=== PATIENT | female | born 1945 | race Caucasian/White ===

== ENCOUNTER → 2023-10-22 09:20 | Outpatient (REF) | payer MEDICARE, SELFPAY ==
[2023-10-22 10:25] LABS: % Basophils 0.5 % (0-2); % Eosinophils 4.2 % (0-6); % Immature Granulocytes 0.1 % (0-0.5); % Lymphocytes 17.2 % (20.5-51.1); % Monocytes 11.2 % (1.7-9.3); % Neutrophils 66.8 % (42.2-75.2); Absolute Eosinophils 0.4 10^3/uL (0-0.7); Absolute Lymphocytes 1.4 10^3/uL (1.2-3.4); Absolute Monocytes 0.9 10^3/uL (0.1-0.6); Absolute Neutrophils 5.5 10^3/uL (1.4-6.5); Hematocrit 33.4 % (37.0-47.0); Hemoglobin 10.4 g/dL (12.0-16.0); Mean Corp Hgb Conc. 31.1 g/dL (33.0-37.0); Mean Corpuscular Hgb 27.3 pg (27.0-31.0); Mean Corpuscular Volume 87.7 fL (81.0-99.0); Mean Platelet Volume 10.3 fL (7.4-10.4); Nucleated Red Blood Cells % 0 %; Platelet Count 287 10^3/uL (130-400); Red Blood Cell Count 3.81 10^6/uL (4.20-5.40); White Blood Cell Count 8.3 10^3/uL (4.8-10.8)
[2023-10-22 10:37] LABS: ALT (SGPT) 13 U/L (0-35); AST (SGOT) 19 U/L (14-36); Alkaline Phosphatase 175 U/L (38-126); Blood Urea Nitrogen 16 mg/dl (7-17); Calcium 9.9 mg/dl (8.4-10.2); Carbon Dioxide 31 mmol/L (22-30); Chloride 102 mmol/L (98-107); Glucose 117 mg/dl (70-99); Potassium 4.1 mmol/L (3.5-5.1); Sodium 141 mmol/L (135-145); Total Bilirubin 0.6 mg/dl (0.2-1.3); Total Protein 6.6 g/dl (6.3-8.2); eGFR > 60.00
[2023-10-22 11:02] LABS: Erythrocyte Sed Rate 65 mm/hour (0-20)
== END ==
LOC: OLABWPC 09:20
PROVIDERS: ATTENDING PHYSICIAN Internal Medicine
DX: E78.00 Pure hypercholesterolemia, unspecified (principal); E03.9 Hypothyroidism, unspecified; R60.0 Localized edema; E78.5 Hyperlipidemia, unspecified
CPT/HCPCS: 36415; 80053; 85025; 85652

== ENCOUNTER → 2023-11-01 12:25 | Outpatient (REF) | payer MEDICARE, SELFPAY | LOC: WOUND 12:25 | PROVIDERS: ATTENDING PHYSICIAN Surgery; FAMILY PHYSICIAN Internal Medicine | DX: I87.2 Venous insufficiency (chronic) (peripheral) (principal); R60.1 Generalized edema; I10 Essential (primary) hypertension; I25.10 Atherosclerotic heart disease of native coronary artery without angina pectoris | CPT/HCPCS: 99202 ==

== ENCOUNTER → 2024-01-22 10:07 | Outpatient (REF) | payer MEDICARE, SELFPAY ==
[2024-01-22 10:36] LABS: % Basophils 0.6 % (0-2); % Eosinophils 4.3 % (0-6); % Immature Granulocytes 0.4 % (0-0.5); % Lymphocytes 20.9 % (20.5-51.1); % Monocytes 6.8 % (1.7-9.3); Absolute Basophils 0.1 10^3/uL (0-0.2); Absolute Eosinophils 0.3 10^3/uL (0-0.7); Absolute Lymphocytes 1.7 10^3/uL (1.2-3.4); Absolute Monocytes 0.5 10^3/uL (0.1-0.6); Absolute Neutrophils 5.4 10^3/uL (1.4-6.5); Hematocrit 33.5 % (37.0-47.0); Hemoglobin 10.1 g/dL (12.0-16.0); Mean Corp Hgb Conc. 30.1 g/dL (33.0-37.0); Mean Corpuscular Hgb 26.9 pg (27.0-31.0); Mean Corpuscular Volume 89.1 fL (81.0-99.0); Mean Platelet Volume 9.9 fL (7.4-10.4); Nucleated Red Blood Cells % 0 %; Platelet Count 304 10^3/uL (130-400); Red Blood Cell Count 3.76 10^6/uL (4.20-5.40); Red Cell Dist. Width 15.5 % (11.5-14.5)
[2024-01-22 10:52] LABS: Erythrocyte Sed Rate 62 mm/hour (0-20)
[2024-01-22 11:11] LABS: ALT (SGPT) 13 U/L (0-35); AST (SGOT) 24 U/L (14-36); Albumin 3.2 g/dl (3.5-5.0); Alkaline Phosphatase 198 U/L (38-126); Blood Urea Nitrogen 13 mg/dl (7-17); Calcium 10.1 mg/dl (8.4-10.2); Carbon Dioxide 29 mmol/L (22-30); Chloride 103 mmol/L (98-107); Glucose 98 mg/dl (70-99); HDL Cholesterol 57 mg/dl; LDL Cholesterol, Calculated 22 mg/dl; Potassium 4.1 mmol/L (3.5-5.1); Sodium 137 mmol/L (135-145); Total Bilirubin 0.4 mg/dl (0.2-1.3); Total Cholesterol 95 mg/dl (50-199); Total Protein 6.9 g/dl (6.3-8.2); Triglyceride 82 mg/dl (10-149); Very Low Density Lipoprotein 16 mg/dl (0-30); eGFR > 60.00
[2024-01-25 09:30] LABS: Free T4 1.48 ng/dl (0.78-2.19)
== END ==
LOC: OLABWPC 10:07
PROVIDERS: ATTENDING PHYSICIAN Internal Medicine
DX: E78.00 Pure hypercholesterolemia, unspecified (principal); E03.9 Hypothyroidism, unspecified; R60.0 Localized edema; E78.5 Hyperlipidemia, unspecified
CPT/HCPCS: 36415; 80053; 80061; 84443; 85025; 85652

== ENCOUNTER → 2024-03-10 09:41 | Outpatient (REF) | payer MEDICARE, SELFPAY ==
[2024-03-10 11:46] LABS: Free T4 1.74 ng/dl (0.78-2.19)
[2024-03-10 12:00] LABS: TSH 4.79 uIU/ml (0.47-4.68)
== END ==
LOC: OLABWPC 09:41
PROVIDERS: ATTENDING PHYSICIAN Registered Nurse
DX: E03.9 Hypothyroidism, unspecified (principal)
CPT/HCPCS: 36415; 84439; 84443

== ENCOUNTER 2024-03-28 03:25 | Emergency (ER) | payer MEDICARE, SELFPAY ==
[2024-03-28 03:31] VITALS: BP 154/76; BMI 34.5
[2024-03-28 03:38] VITALS: BP 154/76
--- NOTE | 2024-03-28 04:48 | ED.GENMED ---
History of Present Illness
<ANN Noel - Last Filed: 03/28/24 06:01>
General
Chief Complaint: Fall
Source: patient
Exam Limitations: none
Time Seen by Provider: 03/28/24 04:44
Nursing documentation reviewed up to this point in time: agreed with
History of Present Illness
History of Present Illness:
78 year old female presents for evaluation of a fall. Pt is a resident at [facility], and states that at approximately 03:00 on 03/28 she fell off the toilet; endorses 'dosing off' prior to her fall. Pt notes she fell onto her left knee,
denies LOC and denies hitting her head. She was able to ambulate with EMS assistance following the fall. She typically uses a walker to ambulate day-to-day. Currently pt endorses mild left knee pain only with extension, as well as mild swelling. XR
negative for fracture. Pt notes that this is her third fall in the last 10 years. She denies numbness/tingling, dizziness, N/V, syncope, GOMEZ, and changes in vision.
Past History
<ANN Noel - Last Filed: 03/28/24 06:01>
Past History
ED Past Medical History: CAD, GERD, HTN, Hypercholesterolemia, Hypothyroidism and Other (chronic LE cellulitis)
ED Past Surgical History: Gynecological and Orthopedic
Social History
Tobacco: Non-smoker
Alcohol: None
Drug: None
Living: assisted living
Family History
Family History: Unable to obtain
Review of Systems
<ANN Noel - Last Filed: 03/28/24 06:01>
Review of Systems
Allergies reviewed?: Yes
Constitutional: Reports no symptoms
EENT: Reports no symptoms
Respiratory: Reports no symptoms
Cardiac: Reports no symptoms
ABD/GI: Reports no symptoms
: Reports no symptoms
Musculoskeletal: Reports joint pain (left knee) and joint swelling (left knee)
Skin: Reports no symptoms
Neurological: Reports no symptoms
Endocrine: Reports no symptoms
Hematologic/Lymphatic: Reports no symptoms
Psychiatric: Reports no symptoms
Phy Exam
<ANN Noel - Last Filed: 03/28/24 06:01>
General Physical Exam
General Presentation: well appearing
General age: appears stated age
General Skin: warm
General Habitus: elderly
General Mental: alert
General Hydration: appears well hydrated
Cardiovascular Exam
Cardiovascular Exam: regular rate/rhythm
Pulmonary Exam
Pulmonary Exam: lungs clear and no respiratory distress
Neurological Exam
Neurological Exam: alert, oriented x3, no motor deficits and no sensory deficits
Musculoskeletal Exam
Musculoskeletal Exam: joint swelling (mild swelling over left superior patella ) and other (mild pain elicited with left knee extension )
Skin Exam
Skin Exam: erythema (right and left lower legs)
Course
<ANN Noel - Last Filed: 03/28/24 06:01>
Orders/Labs/Results
Orders:
Orders
03/28/24 03:40
CT Head W/o Iv Contrast Urgent
Comment:
Reason For Exam: Fall
03/28/24 03:43
Electrocardiogram (*1) Urgent
Reason for Study: Syncope
CR Knee - Left 4 Or More View* Urgent
Comment:
Reason For Exam: fall
03/28/24 03:44
EKG- Treatment ONCE
Vital Signs
Initial and Last Documented VS:
Initial Vital Signs
Temp Pulse Resp BP Pulse Ox
97.7 F 58 16 154/76 97
03/28/24 03:31 03/28/24 03:31 03/28/24 03:31 03/28/24 03:31 03/28/24 03:31
Last Documented Vital Signs
Temp Pulse Resp BP Pulse Ox
97.7 F 58 16 154/76 98
03/28/24 03:31 03/28/24 03:31 03/28/24 03:31 03/28/24 03:38 03/28/24 04:00
<Arcadio Gonzales DO - Last Filed: 03/28/24 06:07>
Orders/Labs/Results
Orders:
Orders
03/28/24 03:40
CT Head W/o Iv Contrast Urgent
Comment:
Reason For Exam: Fall
03/28/24 03:43
Electrocardiogram (*1) Urgent
Reason for Study: Syncope
CR Knee - Left 4 Or More View* Urgent
Comment:
Reason For Exam: fall
03/28/24 03:44
EKG- Treatment ONCE
Vital Signs
Initial and Last Documented VS:
Initial Vital Signs
Temp Pulse Resp BP Pulse Ox
97.7 F 58 16 154/76 97
03/28/24 03:31 03/28/24 03:31 03/28/24 03:31 03/28/24 03:31 03/28/24 03:31
Last Documented Vital Signs
Temp Pulse Resp BP Pulse Ox
97.7 F 58 16 154/76 98
03/28/24 03:31 03/28/24 03:31 03/28/24 03:31 03/28/24 03:38 03/28/24 04:00
<ANN Noel - Last Filed: 03/28/24 06:01>
MDM/Problems Addressed
Differential Diagnosis Includes:
left knee contusion, left knee fracture
<DO Marisol Parker Last Filed: 03/28/24 06:07>
*Critical Care Note
Total Time (30-74mins, 75-104mins- exclusive of procedures): Not Applicable
ED Attending Note
<ANN Noel - Last Filed: 03/28/24 06:01>
-
Portions of this chart may have been created with voice recognition software.� Occasional wrong word or��sound alike� substitutions may have occurred due to the inherent limitations of voice recognition software.
<Arcadio Gonzales DO - Last Filed: 03/28/24 06:07>
ED Attending Note
Patient seen and examined by attending physician: Yes
I performed the substantive portion of visit, reviewed & personally made and approve the management plan that is documented in note by myself or CASIMIRO.: Yes
ED Attending Note:
78-year-old female that presents from [facility] for fall from the toilet. She was sitting on the toilet and slid off, landing on her left knee. Denies head injury or loss of consciousness. States that her knee did not even hurt at
time of arrival in the hospital. Patient does have chronic peripheral vascular disease in the lower extremities. She states that her wounds were not hurting any more than typical. Patient was seen in conjunction with the PA student. I have
reviewed and agree with the history and treatment plan presented. On my independent physical exam, patient is awake, alert, and oriented x3 minimal to no acute distress. Some edema about the left knee. Negative hip rolling test. Bilateral lower
extremities are wrapped due to peripheral vascular disease.
Plan is discharge back to [facility]. Patient is agreement with this plan.
Discharge Plan
Departure
Prescriptions:
No Action
atorvastatin 40 MG tablet
40 mg PO HS
Hold Instructions: until lft's normalize
metoprolol tartrate 100 MG tablet
100 mg PO BID
pantoprazole 40 MG tablet,delayed release (DR/EC)
40 mg PO DAILY
docusate sodium 100 MG capsule
100 mg PO DAILYPRN PRN (Reason: constipation)
aspirin 81 MG tablet,chewable
81 mg PO DAILY
clopidogrel 75 MG tablet
75 mg PO DAILY
bumetanide 0.5 MG tablet
0.5 mg PO DAILY
aripiprazole 5 MG tablet
2.5 mg PO HS
duloxetine 60 MG capsule,delayed release(DR/EC)
60 mg PO DAILY
Systane Balance 10 ML drops
1 drp BOTH EYES Q12H PRN (Reason: dry eyes)
acetaminophen 325 MG tablet
650 mg PO Q6HPRN PRN (Reason: MILD PAIN/FEVER>101)
hydroxyzine HCl 25 MG tablet
25 mg PO HS
magnesium hydroxide 30 ML suspension
30 ml PO HSPRN PRN (Reason: NO BM X 2 DAYS)
Lubricant Eye (PG-PEG 400)(PF) 0.4-0.3 % Dropperette
1 drp BOTH EYES BID Qty: 0
gabapentin 100 MG capsule
100 mg PO HS
cholecalciferol (vitamin D3) 125 MCG tablet,disintegrating
125 mcg PO DAILY
nystatin 100,000 unit/gram Powder
1 applic TOPICAL BID
Rx Instructions:
apply to abd folds/under breasts, apply to sacrum
triamcinolone acetonide 1 APPLIC ointment
1 applic topical BID
Fleet Enema 19-7 gram/118 mL Enema
118 ml [place] DAILYPRN PRN (Reason: 8HR AFTR MOM IF NO BM)
eyelid cleansers Pad
1 pad TOPICAL DAILY
amlodipine [Norvasc] 10 mg Tablet
10 mg PO DAILY
cyanocobalamin (vitamin B-12) 1,000 mcg/mL Solution
1,000 mcg IM QMONTH
Patient Comments:
monthly on the 3rd
nystatin 100,000 unit/gram Cream
1 applic TOPICAL BID
levothyroxine [Synthroid] 200 mcg Tablet
225 mcg PO DAILY
Remedy Calazime Intensive Skin 0.44-20.6 % Paste
1 applic TOPICAL QPM
coQ10 (ubiquinol) 100 mg Capsule
100 mg PO DAILY
white petrolatum [Hydrophor] 42 % Ointment
1 applic topical DAILY Qty: 0 0RF
doxycycline hyclate 100 mg capsule
100 mg PO BID Qty: 10 0RF
fentanyl 50 MCG patch 72 hour
50 mcg transdermal Q72H Qty: 2 0RF
Referrals:
UNKNOWN - PT DOES,NOT KNOW [Family Provider] -
Interventions
Interventions:
*Risk Screen - Suicide Last Done: 03/28/24 03:31
*General Assessment Last Done: 03/28/24 03:31
*Neglect/Abuse Screening Last Done: 03/28/24 03:31
ED- Fall Risk Assessment Last Done: 03/28/24 03:31
*ED COVID-19 Vaccine History Last Done: 03/28/24 03:31
ED-Musculoskeletal Assessment Last Done: 03/28/24 04:14
ED- Neurological Assessment Last Done: 03/28/24 04:14
ED-Skin Assessment Last Done: 03/28/24 04:14
Discharge Date and Time
Print Language: MALAGASY
[2024-03-28 06:25] VITALS: BP 145/85
== END 2024-03-28 06:36 | disposition home or self-care (01) ==
LOC: EMR 03:25
PROVIDERS: EMERGENCY PHYSICIAN Student in an Organized Health Care Education/Training Program
DX: S80.02XA Contusion of left knee, initial encounter (principal); W18.11XA Fall from or off toilet without subsequent striking against object, initial encounter; Y93.E8 Activity, other personal hygiene; Y92.121 Bathroom in nursing home as the place of occurrence of the external cause; I73.9 Peripheral vascular disease, unspecified; I25.10 Atherosclerotic heart disease of native coronary artery without angina pectoris; I12.9 Hypertensive chronic kidney disease with stage 1 through stage 4 chronic kidney disease, or unspecified chronic kidney disease; N18.9 Chronic kidney disease, unspecified; E78.00 Pure hypercholesterolemia, unspecified; E03.9 Hypothyroidism, unspecified; K21.9 Gastro-esophageal reflux disease without esophagitis; F32.A Depression, unspecified; R29.6 Repeated falls; Z79.82 Long term (current) use of aspirin; Z88.2 Allergy status to sulfonamides
CPT/HCPCS: 99284; 70450; 73564; 93005

== ENCOUNTER → 2024-04-18 12:33 | Outpatient (REF) | payer MEDICARE, SELFPAY ==
[2024-04-18 13:13] LABS: % Basophils 0.4 % (0-2); % Immature Granulocytes 0.3 % (0-0.5); % Monocytes 9.6 % (1.7-9.3); % Neutrophils 67.7 % (42.2-75.2); Absolute Eosinophils 0.2 10^3/uL (0-0.7); Absolute Lymphocytes 1.4 10^3/uL (1.2-3.4); Absolute Monocytes 0.7 10^3/uL (0.1-0.6); Absolute Neutrophils 4.9 10^3/uL (1.4-6.5); Hematocrit 35.3 % (37.0-47.0); Hemoglobin 10.9 g/dL (12.0-16.0); Mean Corp Hgb Conc. 30.9 g/dL (33.0-37.0); Mean Corpuscular Hgb 26.7 pg (27.0-31.0); Mean Corpuscular Volume 86.5 fL (81.0-99.0); Mean Platelet Volume 9.7 fL (7.4-10.4); Nucleated Red Blood Cells % 0 %; Platelet Count 295 10^3/uL (130-400); Red Blood Cell Count 4.08 10^6/uL (4.20-5.40); Red Cell Dist. Width 15.3 % (11.5-14.5); White Blood Cell Count 7.3 10^3/uL (4.8-10.8)
[2024-04-18 13:22] LABS: ALT (SGPT) 15 U/L (0-35); AST (SGOT) 25 U/L (14-36); Albumin 3.6 g/dl (3.5-5.0); Alkaline Phosphatase 200 U/L (38-126); Blood Urea Nitrogen 16 mg/dl (7-17); Calcium 10.1 mg/dl (8.4-10.2); Carbon Dioxide 30 mmol/L (22-30); Chloride 103 mmol/L (98-107); Glucose 104 mg/dl (70-99); Potassium 4.3 mmol/L (3.5-5.1); Sodium 139 mmol/L (135-145); Total Bilirubin 0.5 mg/dl (0.2-1.3); Total Protein 7.3 g/dl (6.3-8.2); eGFR 58.02
[2024-04-18 13:43] LABS: Erythrocyte Sed Rate 75 mm/hour (0-20)
== END ==
LOC: OLABWPC 12:33
PROVIDERS: ATTENDING PHYSICIAN Internal Medicine
DX: E78.00 Pure hypercholesterolemia, unspecified (principal); E03.9 Hypothyroidism, unspecified; R60.0 Localized edema
CPT/HCPCS: 36415; 80053; 85025; 85652

== ENCOUNTER → 2024-07-23 10:21 | Outpatient (REF) | payer MEDICARE, SELFPAY ==
[2024-07-23 11:04] LABS: % Basophils 0.9 % (0-2); % Eosinophils 6.4 % (0-6); % Immature Granulocytes 0.2 % (0-0.5); % Lymphocytes 24.9 % (20.5-51.1); % Monocytes 9.6 % (1.7-9.3); Absolute Basophils 0.1 10^3/uL (0-0.2); Absolute Eosinophils 0.4 10^3/uL (0-0.7); Absolute Lymphocytes 1.6 10^3/uL (1.2-3.4); Absolute Monocytes 0.6 10^3/uL (0.1-0.6); Absolute Neutrophils 3.8 10^3/uL (1.4-6.5); Hematocrit 38.8 % (37.0-47.0); Hemoglobin 12.4 g/dL (12.0-16.0); Mean Corpuscular Hgb 26.6 pg (27.0-31.0); Mean Corpuscular Volume 83.3 fL (81.0-99.0); Mean Platelet Volume 9.8 fL (7.4-10.4); Nucleated Red Blood Cells % 0 %; Platelet Count 326 10^3/uL (130-400); Red Blood Cell Count 4.66 10^6/uL (4.20-5.40); Red Cell Dist. Width 14.5 % (11.5-14.5); White Blood Cell Count 6.6 10^3/uL (4.8-10.8)
[2024-07-23 11:14] LABS: Erythrocyte Sed Rate 52 mm/hour (0-20)
[2024-07-23 12:18] LABS: ALT (SGPT) 22 U/L (0-35); AST (SGOT) 30 U/L (14-36); Albumin 3.9 g/dl (3.5-5.0); Alkaline Phosphatase 211 U/L (38-126); Blood Urea Nitrogen 19 mg/dl (7-17); Calcium 10.5 mg/dl (8.4-10.2); Carbon Dioxide 23 mmol/L (22-30); Chloride 104 mmol/L (98-107); Glucose 134 mg/dl (70-99); HDL Cholesterol 56 mg/dl; LDL Cholesterol, Calculated 42 mg/dl; Potassium 4.2 mmol/L (3.5-5.1); Sodium 141 mmol/L (135-145); Total Bilirubin 0.5 mg/dl (0.2-1.3); Total Cholesterol 118 mg/dl (50-199); Total Protein 7.8 g/dl (6.3-8.2); Triglyceride 104 mg/dl (10-149); Very Low Density Lipoprotein 20 mg/dl (0-30); eGFR 58.02
[2024-07-23 12:30] LABS: TSH 0.73 uIU/ml (0.47-4.68)
== END ==
LOC: OLABWPC 10:21
PROVIDERS: ATTENDING PHYSICIAN Internal Medicine
DX: E78.00 Pure hypercholesterolemia, unspecified (principal); E03.9 Hypothyroidism, unspecified; R60.0 Localized edema; E78.5 Hyperlipidemia, unspecified
CPT/HCPCS: 36415; 80053; 80061; 84443; 85025; 85652

== ENCOUNTER → 2024-07-27 05:58 | Emergency (ER) | payer MEDICARE, SELFPAY ==
[2024-07-27 06:06] VITALS: BP 165/87
[2024-07-27 06:07] VITALS: BMI 32.2
--- NOTE | 2024-07-27 06:09 | ED.GENMED ---
History of Present Illness
General
Chief Complaint: Fall
Source: patient, ambulance crew and [facility]
Exam Limitations: none
Time Seen by Provider: 07/27/24 06:02
Nursing documentation reviewed up to this point in time: agreed with
History of Present Illness
History of Present Illness:
Patient presents to ED from [facility] secondary to fall, shortly prior to arrival. Patient states that she got out of bed to go to the restroom. She had reached for her walker and shortly afterwards, found herself falling backwards with the
walker on top of her. Patient was attended to immediately by nursing staff and 911 was called. Patient denies loss of consciousness. Denies headache. Denies neck pain. Denies dizziness or palpitations prior to falling down. Denies loss of
sensation or weakness. Denies recent illness. Denies recent change in medications or diet. At the time of evaluation ED, patient requesting to be discharged back 'home'.
Past History
Past History
ED Past Medical History: CAD, GERD, HTN, Hypercholesterolemia, Hypothyroidism and Other (chronic LE cellulitis)
ED Past Surgical History: Gynecological and Orthopedic
Social History
Tobacco: Non-smoker
Alcohol: None
Drug: None
Living: assisted living
Family History
Family History: Unable to obtain
Review of Systems
Review of Systems
Allergies reviewed?: Yes
All Other Systems: ROS reviewed and negative except as documented in HPI and ROS
Constitutional: Reports no symptoms
EENT: Reports no symptoms
Respiratory: Reports no symptoms; Denies trouble breathing
Cardiac: Reports no symptoms; Denies chest pain or palpitations
ABD/GI: Reports no symptoms
Musculoskeletal: Reports no symptoms
Skin: Reports no symptoms
Neurological: Reports no symptoms
Phy Exam
Physical Exam
Physical Exam:
Physical Exam
General: no apparent distress, not acutely ill. afebrile.
Head: ecchymosis/swelling noted over top of scalp, without tenderness or open wound.
Neck: supple. no meningeal signs.
Heart: s1/s2 regular rate and rhythm, no murmur. equal radial pulses.
Lungs: no acute respiratory distress. clear bilaterally
Abdomen: normal bowel sounds. not tender.
Neuro: alert and oriented. no focal neurological deficits
Skin: no rash
Psychiatric: well kept. interactive and cooperative
Extremities: no edema. no calf tenderness.
Course
Orders/Labs/Results
Orders:
Orders
07/27/24 06:23
CT Head W/o Iv Contrast Urgent
Comment:
Reason For Exam: trauma to top of head, s/p fall
07/27/24 09:10
Urinalysis Reflex To Culture Urgent
Date Specimen was Collected: 07/27/24
Time Specimen was Collected: 09:08
Urine Microscopic Reflex Cult Urgent
Urine Culture Urgent
TANIKA Source: U
Specimen Description:
Date Specimen was Collected: 07/27/24
Time Specimen was Collected: 09:08
Abnormal Lab Results
07/27/24
09:10
Ur Occult Blood Reflex 1+ A
(Negative)
Urine RBC 7-10 A /HPF
(0-2)
Urine Bacteria (Reflex) Moderate A
(Negative)
07/27/24 08:06
07/27/24 08:06
Vital Signs
Initial and Last Documented VS:
Initial Vital Signs
BP Pulse Ox
165/87 94
07/27/24 06:06 07/27/24 06:06
Last Documented Vital Signs
Temp Pulse Resp BP Pulse Ox
98.8 F 59 10 160/82 93
07/27/24 06:07 07/27/24 10:15 07/27/24 10:15 07/27/24 10:00 07/27/24 10:15
MDM/Problems Addressed
MDM/Problems Addressed:
Per staff at [facility], patient has had increased urinary frequency with incontinence over the past 2 weeks, along with worsening bilateral leg redness, currently off antibiotics. As such, will check blood work and urinalysis.
Unfortunately, patient refused blood work in ED but agreeable to check urinalysis.
UA report reviewed -no convincing evidence of UTI. As such, will not start antibiotics. Otherwise, patient is afebrile, hemodynamically stable, and neurologically intact, and appears comfortable, at time of discharge back to [facility].
*Critical Care Note
Total Time (30-74mins, 75-104mins- exclusive of procedures): Not Applicable
ED Attending Note
-
Portions of this chart may have been created with voice recognition software.� Occasional wrong word or��sound alike� substitutions may have occurred due to the inherent limitations of voice recognition software.
Discharge Plan
Departure
Patient Disposition: [facility]pc/SNF
Date of Disposition: 07/27/24
Time of Disposition: 09:41
Discharge Problem:
Head injury
Instructions: Head Injury in Adults (DC)
Prescriptions:
No Action
atorvastatin 40 MG tablet
40 mg PO HS
metoprolol tartrate 100 MG tablet
100 mg PO BID
pantoprazole 40 MG tablet,delayed release (DR/EC)
40 mg PO DAILY
docusate sodium 100 MG capsule
100 mg PO DAILYPRN PRN (Reason: constipation)
aspirin 81 MG tablet,chewable
81 mg PO DAILY
clopidogrel 75 MG tablet
75 mg PO DAILY
bumetanide 0.5 MG tablet
0.5 mg PO DAILY
aripiprazole 5 MG tablet
2.5 mg PO HS
duloxetine 60 MG capsule,delayed release(DR/EC)
60 mg PO DAILY
Systane Balance 10 ML drops
1 drp BOTH EYES Q12H PRN (Reason: dry eyes)
acetaminophen 325 MG tablet
650 mg PO Q6HPRN PRN (Reason: MILD PAIN/FEVER>101)
hydroxyzine HCl 25 MG tablet
25 mg PO HS
magnesium hydroxide 30 ML suspension
30 ml PO HSPRN PRN (Reason: NO BM X 2 DAYS)
Lubricant Eye (PG-PEG 400)(PF) 0.4-0.3 % Dropperette
1 drp BOTH EYES BID Qty: 0
gabapentin 100 MG capsule
100 mg PO HS
cholecalciferol (vitamin D3) 125 MCG tablet,disintegrating
125 mcg PO DAILY
nystatin 100,000 unit/gram Powder
1 applic TOPICAL BID
Rx Instructions:
apply to abd folds/under breasts, apply to sacrum
triamcinolone acetonide 1 APPLIC ointment
1 applic topical BID
Fleet Enema 19-7 gram/118 mL Enema
118 ml [place] DAILYPRN PRN (Reason: 8HR AFTR MOM IF NO BM)
eyelid cleansers Pad
1 pad TOPICAL DAILY
amlodipine [Norvasc] 10 mg Tablet
10 mg PO DAILY
cyanocobalamin (vitamin B-12) 1,000 mcg/mL Solution
1,000 mcg IM QMONTH
Patient Comments:
monthly on the 3rd
nystatin 100,000 unit/gram Cream
1 applic TOPICAL BID
levothyroxine [Synthroid] 200 mcg Tablet
225 mcg PO DAILY
Remedy Calazime Intensive Skin 0.44-20.6 % Paste
1 applic TOPICAL QPM
coQ10 (ubiquinol) 100 mg Capsule
100 mg PO DAILY
white petrolatum [Hydrophor] 42 % Ointment
1 applic topical DAILY Qty: 0 0RF
doxycycline hyclate 100 mg capsule
100 mg PO BID Qty: 10 0RF
fentanyl 50 MCG patch 72 hour
50 mcg transdermal Q72H Qty: 2 0RF
Referrals:
Roderick Baker MD [Family Provider] -
Activity Restrictions/Additional Instructions:
As discussed, you are being discharged back to [facility] for continual evaluation and treatment.
Interventions
Interventions:
*Risk Screen - Suicide Last Done: 07/27/24 06:07
*General Assessment Last Done: 07/27/24 06:07
*Neglect/Abuse Screening Last Done: 07/27/24 06:07
*ED COVID-19 Vaccine History Last Done: 07/27/24 06:07
ED-Musculoskeletal Assessment Last Done: 07/27/24 06:07
ED- Neurological Assessment Last Done: 07/27/24 06:07
ED-Skin Assessment Last Done: 07/27/24 06:07
Discharge Date and Time
Print Language: KHMER
[2024-07-27 07:00] VITALS: BP 156/63
[2024-07-27 08:00] VITALS: BP 140/74
[2024-07-27 09:00] VITALS: BP 153/68
[2024-07-27 09:35] LABS: Urine Albumin Trace (Neg - Trace); Urine Bilirubin Negative (Negative); Urine Character Slightly Cloudy (Clear); Urine Color Yellow; Urine Glucose Negative (Negative); Urine Ketone Negative (Negative); Urine Leukocyte Negative (Negative); Urine Nitrite Negative (Negative); Urine Occult Blood 1+ (Negative); Urine Urobilinogen Negative (Neg - 1+)
[2024-07-27 10:00] VITALS: BP 160/82
[2024-07-27 10:30] LABS: Urine Amorphous Seen
[2024-07-27 10:32] LABS: Urine Bacteria Moderate (Negative)
== END ==
LOC: EMR 05:58
PROVIDERS: EMERGENCY PHYSICIAN Emergency Medicine; FAMILY PHYSICIAN Internal Medicine
DX: S09.90XA Unspecified injury of head, initial encounter (principal); W19.XXXA Unspecified fall, initial encounter
CPT/HCPCS: 99284; 70450; 81003; 81015; 87077; 87086; 87088; 87186

== ENCOUNTER → 2024-10-21 11:17 | Outpatient (REF) | payer MEDICARE, SELFPAY ==
[2024-10-21 11:51] LABS: % Basophils 0.8 % (0-2); % Eosinophils 4.4 % (0-6); % Immature Granulocytes 0.3 % (0-0.5); % Lymphocytes 26.8 % (20.5-51.1); % Monocytes 9.4 % (1.7-9.3); % Neutrophils 58.3 % (42.2-75.2); Absolute Basophils 0.1 10^3/uL (0-0.2); Absolute Eosinophils 0.3 10^3/uL (0-0.7); Absolute Lymphocytes 1.7 10^3/uL (1.2-3.4); Absolute Monocytes 0.6 10^3/uL (0.1-0.6); Absolute Neutrophils 3.7 10^3/uL (1.4-6.5); Hematocrit 39.1 % (37.0-47.0); Hemoglobin 11.8 g/dL (12.0-16.0); Mean Corp Hgb Conc. 30.2 g/dL (33.0-37.0); Mean Corpuscular Hgb 26.5 pg (27.0-31.0); Mean Corpuscular Volume 87.9 fL (81.0-99.0); Nucleated Red Blood Cells % 0 %; Platelet Count 268 10^3/uL (130-400); Red Blood Cell Count 4.45 10^6/uL (4.20-5.40); White Blood Cell Count 6.3 10^3/uL (4.8-10.8)
[2024-10-21 12:15] LABS: ALT (SGPT) 23 U/L (0-35); AST (SGOT) 34 U/L (14-36); Albumin 3.8 g/dl (3.5-5.0); Alkaline Phosphatase 211 U/L (38-126); Blood Urea Nitrogen 18 mg/dl (7-17); Calcium 10.2 mg/dl (8.4-10.2); Carbon Dioxide 29 mmol/L (22-30); Chloride 101 mmol/L (98-107); Glucose 97 mg/dl (70-99); HDL Cholesterol 52 mg/dl; Sodium 137 mmol/L (135-145); Total Bilirubin 0.7 mg/dl (0.2-1.3); Total Protein 6.9 g/dl (6.3-8.2); Triglyceride 61 mg/dl (10-149); Very Low Density Lipoprotein 12 mg/dl (0-30); eGFR > 60.00
[2024-10-21 12:16] LABS: Erythrocyte Sed Rate 38 mm/hour (0-20)
[2024-10-21 13:26] LABS: LDL Cholesterol, Calculated 25 mg/dl; Total Cholesterol 89 mg/dl (50-199)
== END ==
LOC: OLABWPC 11:17
DX: I65.29 Occlusion and stenosis of unspecified carotid artery (principal); E78.00 Pure hypercholesterolemia, unspecified; E03.9 Hypothyroidism, unspecified; R60.0 Localized edema; E78.5 Hyperlipidemia, unspecified
CPT/HCPCS: 36415; 80053; 80061; 85025; 85652

== ENCOUNTER 2024-11-24 23:37 | Emergency (ER) | payer MEDICARE, SELFPAY ==
[2024-11-24 23:41] VITALS: BP 175/71; BMI 29.7
[2024-11-24 23:43] VITALS: BP 175/71
[2024-11-25] VITALS (9 sets, daily range): BP systolic 138–156; BP diastolic 60–78
--- NOTE | 2024-11-25 00:49 | ED.GENMED ---
History of Present Illness
General
Chief Complaint: Fall
Source: patient
Exam Limitations: none
Time Seen by Provider: 11/24/24 23:59
Nursing documentation reviewed up to this point in time: agreed with
History of Present Illness
History of Present Illness:
79-year-old female past medical history of CAD hypertension hyperlipidemia presenting to the emergency department today with concerns of bruising to her forehead after a fall she had 4 days ago. She otherwise feels well. Denies additional concerns
or symptoms.
Past History
Past History
ED Past Medical History: CAD, GERD, HTN, Hypercholesterolemia, Hypothyroidism and Other (chronic LE cellulitis)
ED Past Surgical History: Gynecological and Orthopedic
Social History
Tobacco: Non-smoker
Alcohol: None
Drug: None
Living: assisted living
Family History
Family History: Unable to obtain
Review of Systems
Review of Systems
Allergies reviewed?: Yes
All Other Systems: ROS reviewed and negative except as documented in HPI and ROS
Phy Exam
Physical Exam
Physical Exam:
GENERAL: Alert , in no apparent distress
EYE: Normal extraocular movements pupils equal and reactive
NECK: Supple, no significant adenopathy.
ENT: Bruising of the forehead, o/p clr, mmm.
CARDIAC: Regular rate and rhythm .
LUNGS: Clear breath sounds bilaterally, no acute respiratory distress, no wheezes/rales/rhonchi
ABDOMEN: Soft, without focal tenderness, no r/g, no cvat
NEUROLOGICAL: Alert and oriented, no focal neuro deficits
SKIN: Warm and dry, skin intact.
MUSCULOSKELETAL: No edema, well perfused.
PSYCH: Normal and appropriate interaction.
Course
Orders/Labs/Results
Orders:
Orders
11/25/24 00:02
CT Head W/o Iv Contrast Urgent
Comment:
Reason For Exam: fall hit head on plavix
Vital Signs
Initial and Last Documented VS:
Initial Vital Signs
Temp Pulse Resp BP Pulse Ox
98.5 F 60 18 175/71 96
11/24/24 23:41 11/24/24 23:41 11/24/24 23:41 11/24/24 23:41 11/24/24 23:41
Last Documented Vital Signs
Temp Pulse Resp BP Pulse Ox
98.5 F 57 18 138/78 96
11/24/24 23:41 11/25/24 00:01 11/25/24 00:01 11/25/24 00:01 11/25/24 00:01
MDM/Problems Addressed
MDM/Problems Addressed:
79-year-old female presenting to the emergency department after having a ground-level fall 4 days ago hit her forehead otherwise felt well at the time was not sent in. Patient is on Plavix. Has some bruising to her forehead tonight which prompted
her to come to the ER. Denies additional symptoms no numbness weakness chest pain shortness of breath or neck pain. CT scan was obtained without emergent findings stable for outpatient management return precautions given.
*Critical Care Note
Total Time (30-74mins, 75-104mins- exclusive of procedures): Not Applicable
ED Attending Note
-
Portions of this chart may have been created with voice recognition software.� Occasional wrong word or��sound alike� substitutions may have occurred due to the inherent limitations of voice recognition software.
Discharge Plan
Departure
Patient Disposition: Home (Routine Discharge)
Date of Disposition: 11/25/24
Time of Disposition: 00:50
Patient with high blood pressure during this ER visit?: No
Condition: Good
Covid-19: Not Applicable
Discharge Problem:
Traumatic ecchymosis of forehead
Instructions: Preventing falls in adults
Prescriptions:
No Action
atorvastatin 40 MG tablet
40 mg PO HS
metoprolol tartrate 100 MG tablet
100 mg PO BID
pantoprazole 40 MG tablet,delayed release (DR/EC)
40 mg PO DAILY
docusate sodium 100 MG capsule
100 mg PO DAILYPRN PRN (Reason: constipation)
aspirin 81 MG tablet,chewable
81 mg PO DAILY
clopidogrel 75 MG tablet
75 mg PO DAILY
bumetanide 0.5 MG tablet
0.5 mg PO DAILY
aripiprazole 5 MG tablet
2.5 mg PO HS
duloxetine 60 MG capsule,delayed release(DR/EC)
60 mg PO DAILY
Systane Balance 10 ML drops
1 drp BOTH EYES Q12H PRN (Reason: dry eyes)
acetaminophen 325 MG tablet
650 mg PO Q6HPRN PRN (Reason: MILD PAIN/FEVER>101)
hydroxyzine HCl 25 MG tablet
25 mg PO HS
magnesium hydroxide 30 ML suspension
30 ml PO HSPRN PRN (Reason: NO BM X 2 DAYS)
Lubricant Eye (PG-PEG 400)(PF) 0.4-0.3 % Dropperette
1 drp BOTH EYES BID Qty: 0
gabapentin 100 MG capsule
100 mg PO HS
cholecalciferol (vitamin D3) 125 MCG tablet,disintegrating
125 mcg PO DAILY
nystatin 100,000 unit/gram Powder
1 applic TOPICAL BID
Rx Instructions:
apply to abd folds/under breasts, apply to sacrum
triamcinolone acetonide 1 APPLIC ointment
1 applic topical BID
Fleet Enema 19-7 gram/118 mL Enema
118 ml [place] DAILYPRN PRN (Reason: 8HR AFTR MOM IF NO BM)
eyelid cleansers Pad
1 pad TOPICAL DAILY
amlodipine [Norvasc] 10 mg Tablet
10 mg PO DAILY
cyanocobalamin (vitamin B-12) 1,000 mcg/mL Solution
1,000 mcg IM QMONTH
Patient Comments:
monthly on the 3rd
nystatin 100,000 unit/gram Cream
1 applic TOPICAL BID
levothyroxine [Synthroid] 200 mcg Tablet
225 mcg PO DAILY
Remedy Calazime Intensive Skin 0.44-20.6 % Paste
1 applic TOPICAL QPM
coQ10 (ubiquinol) 100 mg Capsule
100 mg PO DAILY
white petrolatum [Hydrophor] 42 % Ointment
1 applic topical DAILY Qty: 0 0RF
doxycycline hyclate 100 mg capsule
100 mg PO BID Qty: 10 0RF
fentanyl 50 MCG patch 72 hour
50 mcg transdermal Q72H Qty: 2 0RF
Referrals:
Roderick Baker MD [Family Provider] -
Activity Restrictions/Additional Instructions:
You came to the emergency department today with concerns of bruising to her forehead. Here you had a reassuring CT scan. Please use warm compresses to your bruising otherwise return for any worsening, new or concerning symptoms.
Interventions
Interventions:
*Risk Screen - Suicide Last Done: 11/24/24 23:41
*General Assessment Last Done: 11/24/24 23:41
*Neglect/Abuse Screening Last Done: 11/24/24 23:41
*ED- Fall Risk Assessment Last Done: 11/24/24 23:41
*ED COVID-19 Vaccine History Last Done: 11/24/24 23:41
ED-Musculoskeletal Assessment Last Done: 11/24/24 23:41
ED- Neurological Assessment Last Done: 11/24/24 23:41
ED-Skin Assessment Last Done: 11/24/24 23:41
Discharge Date and Time
Print Language: GAMBIAN
== END 2024-11-25 05:50 | disposition home or self-care (01) ==
LOC: EMR 23:37
PROVIDERS: EMERGENCY PHYSICIAN Emergency Medicine; FAMILY PHYSICIAN Internal Medicine
DX: S00.83XA Contusion of other part of head, initial encounter (principal); W19.XXXA Unspecified fall, initial encounter; I25.10 Atherosclerotic heart disease of native coronary artery without angina pectoris; K21.9 Gastro-esophageal reflux disease without esophagitis; I10 Essential (primary) hypertension; E78.00 Pure hypercholesterolemia, unspecified; E03.9 Hypothyroidism, unspecified; Z79.02 Long term (current) use of antithrombotics/antiplatelets
CPT/HCPCS: 99284; 70450

== ENCOUNTER → 2024-12-23 11:35 | Outpatient (REF) | payer MEDICARE, SELFPAY ==
[2024-12-23 12:03] LABS: % Basophils 0.5 % (0-2); % Immature Granulocytes 0.4 % (0-0.5); % Lymphocytes 22.2 % (20.5-51.1); % Monocytes 10.2 % (1.7-9.3); % Neutrophils 63.7 % (42.2-75.2); Absolute Eosinophils 0.3 10^3/uL (0-0.7); Absolute Lymphocytes 1.9 10^3/uL (1.2-3.4); Absolute Monocytes 0.9 10^3/uL (0.1-0.6); Absolute Neutrophils 5.3 10^3/uL (1.4-6.5); Hematocrit 34.8 % (37.0-47.0); Hemoglobin 11.1 g/dL (12.0-16.0); Mean Corp Hgb Conc. 31.9 g/dL (33.0-37.0); Mean Corpuscular Hgb 27.8 pg (27.0-31.0); Mean Corpuscular Volume 87.2 fL (81.0-99.0); Mean Platelet Volume 10.5 fL (7.4-10.4); Nucleated Red Blood Cells % 0 %; Platelet Count 276 10^3/uL (130-400); Red Blood Cell Count 3.99 10^6/uL (4.20-5.40); Red Cell Dist. Width 14.5 % (11.5-14.5); White Blood Cell Count 8.3 10^3/uL (4.8-10.8)
== END ==
LOC: OLABWPC 11:35
PROVIDERS: ATTENDING PHYSICIAN Internal Medicine
DX: I87.2 Venous insufficiency (chronic) (peripheral) (principal); N18.32 Chronic kidney disease, stage 3b
CPT/HCPCS: 36415; 85025

== ENCOUNTER → 2025-01-20 10:17 | Outpatient (REF) | payer MEDICARE, SELFPAY ==
[2025-01-20 11:02] LABS: % Basophils 0.4 % (0-2); % Eosinophils 3.4 % (0-6); % Immature Granulocytes 0.1 % (0-0.5); % Lymphocytes 23.1 % (20.5-51.1); Absolute Eosinophils 0.2 10^3/uL (0-0.7); Absolute Lymphocytes 1.6 10^3/uL (1.2-3.4); Absolute Monocytes 0.8 10^3/uL (0.1-0.6); Absolute Neutrophils 4.3 10^3/uL (1.4-6.5); Hematocrit 37.2 % (37.0-47.0); Hemoglobin 12.1 g/dL (12.0-16.0); Mean Corp Hgb Conc. 32.5 g/dL (33.0-37.0); Mean Corpuscular Volume 86.1 fL (81.0-99.0); Mean Platelet Volume 9.9 fL (7.4-10.4); Nucleated Red Blood Cells % 0 %; Platelet Count 266 10^3/uL (130-400); Red Blood Cell Count 4.32 10^6/uL (4.20-5.40); Red Cell Dist. Width 13.4 % (11.5-14.5)
[2025-01-20 11:15] LABS: ALT (SGPT) 17 U/L (0-35); AST (SGOT) 23 U/L (14-36); Albumin 3.5 g/dl (3.5-5.0); Alkaline Phosphatase 168 U/L (38-126); Blood Urea Nitrogen 17 mg/dl (7-17); Calcium 10.8 mg/dl (8.4-10.2); Carbon Dioxide 31 mmol/L (22-30); Chloride 105 mmol/L (98-107); Glucose 109 mg/dl (70-99); HDL Cholesterol 57 mg/dl; LDL Cholesterol, Calculated 36 mg/dl; Potassium 4.2 mmol/L (3.5-5.1); Sodium 142 mmol/L (135-145); Total Bilirubin 0.6 mg/dl (0.2-1.3); Total Cholesterol 116 mg/dl (50-199); Total Protein 6.9 g/dl (6.3-8.2); Triglyceride 116 mg/dl (10-149); Very Low Density Lipoprotein 23 mg/dl (0-30); eGFR > 60.00
[2025-01-20 11:42] LABS: TSH 0.02 uIU/ml (0.47-4.68)
[2025-01-20 12:01] LABS: Erythrocyte Sed Rate 46 mm/hour (0-20)
== END ==
LOC: OLABWPC 10:17
PROVIDERS: ATTENDING PHYSICIAN Internal Medicine
DX: E78.00 Pure hypercholesterolemia, unspecified (principal); E03.9 Hypothyroidism, unspecified; R60.0 Localized edema; E78.5 Hyperlipidemia, unspecified
CPT/HCPCS: 36415; 80053; 80061; 84443; 85025; 85652

== ENCOUNTER 2025-04-30 05:03 | Emergency (ER) | payer MEDICARE, SELFPAY ==
[2025-04-30 05:10] VITALS: BP 154/72
[2025-04-30 05:13] VITALS: BP 154/72
--- NOTE | 2025-04-30 05:35 | ED.GENMED ---
History of Present Illness
<Radha Jason PA-C - Last Filed: 05/01/25 02:29>
General
Chief Complaint: Fall
Source: patient
Exam Limitations: none
Time Seen by Provider: 04/30/25 05:13
Nursing documentation reviewed up to this point in time: agreed with
History of Present Illness
History of Present Illness:
see MDM
Past History
<Radha Jason PA-C - Last Filed: 05/01/25 02:29>
Past History
ED Past Medical History: CAD, GERD, HTN, Hypercholesterolemia, Hypothyroidism and Other (chronic LE cellulitis)
ED Past Surgical History: Gynecological and Orthopedic
Social History
Tobacco: Non-smoker
Alcohol: None
Drug: None
Living: assisted living
Family History
Family History: Unable to obtain
Phy Exam
<Evelia Butler PA-C - Last Filed: 04/30/25 10:13>
Physical Exam
Physical Exam:
.
Course
<Radha Jason PA-C - Last Filed: 05/01/25 02:29>
Orders/Labs/Results
Orders:
Orders
04/30/25 05:11
CT Cervical Spine W/o Iv Contr Urgent
Comment:
Reason For Exam: fall/headstrike/plavix
CT Head W/o Iv Contrast Urgent
Comment:
Reason For Exam: fall/headstrike/plavix
04/30/25 05:32
CR Hand - Left Min 3 Views Urgent
Comment:
Reason For Exam: skin tear
04/30/25 05:33
Electrocardiogram (*1) Urgent
Reason for Study: Syncope
EKG- Treatment ONCE
04/30/25 05:48
Complete Blood Count/With Diff Urgent
Comprehensive Metabolic Panel Urgent
04/30/25 06:45
Potassium Chloride Powder [Klor-Con] 20 meq PO NOW STA
04/30/25 06:51
Tetanus/Diphth/Acelpertussis [Adacel] 0.5 ml IM .ONCE ONE
Abnormal Lab Results
04/30/25
05:48
RBC 4.09 L 10^6/uL
(4.20-5.40)
Hgb 11.2 L g/dL
(12.0-16.0)
Hct 34.9 L %
(37.0-47.0)
MCHC 32.1 L g/dL
(33.0-37.0)
Absolute Monos (auto) 0.7 H 10^3/uL
(0.1-0.6)
Lymphocytes % 18.4 L %
(20.5-51.1)
Potassium 3.3 L mmol/L
(3.5-5.1)
Chloride 108 H mmol/L
(98-107)
BUN 21 H mg/dl
(7-17)
Glucose 122 H mg/dl
(70-99)
Alkaline Phosphatase 190 H U/L
(38-126)
04/30/25 05:48
04/30/25 05:48
Vital Signs
Initial and Last Documented VS:
Initial Vital Signs
Pulse Resp BP
56 14 154/72
04/30/25 05:10 04/30/25 05:10 04/30/25 05:10
Last Documented Vital Signs
Temp Pulse Resp BP Pulse Ox
37.0 C 77 11 141/79 94
04/30/25 05:13 04/30/25 11:15 04/30/25 06:45 04/30/25 11:15 04/30/25 11:15
[place];Evelia Butler PA-C - Last Filed: 04/30/25 10:13>
Orders/Labs/Results
Orders:
Orders
04/30/25 05:11
CT Cervical Spine W/o Iv Contr Urgent
Comment:
Reason For Exam: fall/headstrike/plavix
CT Head W/o Iv Contrast Urgent
Comment:
Reason For Exam: fall/headstrike/plavix
04/30/25 05:32
CR Hand - Left Min 3 Views Urgent
Comment:
Reason For Exam: skin tear
04/30/25 05:33
Electrocardiogram (*1) Urgent
Reason for Study: Syncope
EKG- Treatment ONCE
04/30/25 05:48
Complete Blood Count/With Diff Urgent
Comprehensive Metabolic Panel Urgent
04/30/25 06:45
Potassium Chloride Powder [Klor-Con] 20 meq PO NOW STA
04/30/25 06:51
Tetanus/Diphth/Acelpertussis [Adacel] 0.5 ml IM .ONCE ONE
Abnormal Lab Results
04/30/25
05:48
RBC 4.09 L 10^6/uL
(4.20-5.40)
Hgb 11.2 L g/dL
(12.0-16.0)
Hct 34.9 L %
(37.0-47.0)
MCHC 32.1 L g/dL
(33.0-37.0)
Absolute Monos (auto) 0.7 H 10^3/uL
(0.1-0.6)
Lymphocytes % 18.4 L %
(20.5-51.1)
Potassium 3.3 L mmol/L
(3.5-5.1)
Chloride 108 H mmol/L
(98-107)
BUN 21 H mg/dl
(7-17)
Glucose 122 H mg/dl
(70-99)
Alkaline Phosphatase 190 H U/L
(38-126)
04/30/25 05:48
04/30/25 05:48
Vital Signs
Initial and Last Documented VS:
Initial Vital Signs
Pulse Resp BP
56 14 154/72
04/30/25 05:10 04/30/25 05:10 04/30/25 05:10
Last Documented Vital Signs
Temp Pulse Resp BP Pulse Ox
37.0 C 77 11 141/79 94
04/30/25 05:13 04/30/25 11:15 04/30/25 06:45 04/30/25 11:15 04/30/25 11:15
<Radha Jason PA-C - Last Filed: 05/01/25 02:29>
MDM/Problems Addressed
Differential Diagnosis Includes:
see MDM
MDM/Problems Addressed:
Note:
CHIEF COMPLAINT(S)
Fall resulting in head injury.
HISTORY OF PRESENT ILLNESS
The patient, female, experienced a fall approximately one hour ago. She was on the toilet when she lost awareness and subsequently found herself in the shower, which has a hard surface. The duration on the ground was estimated to be around half an
hour before someone discovered her. Post-fall, she reports not being certain if she lost consciousness. She experiences tingling sensations in her left leg after the fall, though no current numbness.
pt believes she didn't pass out but just fell asleep.
she is at her baseline
forehead and L hand pain are only complaitns
she did say her L leg was tingling earlier but it resolved
she has no back pain, cp, neck pain, abdomianl apin, hip pain.
SOCIAL DETERMINANTS AFFECTING HEALTH
The patient seems to lack immediate support systems, as the whereabouts of her life alert system were unknown at the time of the fall, posing a risk for delayed medical intervention in case of emergencies.
PHYSICAL EXAM
- head: large hematoma L forehad
neck: full painless ROM
BACK: nontender
pt has dressing in place mid thoracic back from skin lesion that was removed
- Neurological: Patient reports tingling in the left leg without current numbness. No history of stroke. Full range of motion on lower limbs observed.
- Abdominal: Denies pain.
- Musculoskeletal: L hand irregular laceration x 2 approx 5 cm and 4 cm
hematoma clotting in the center of the wound
- Nursing notes reviewed and vital signs reviewed.
PLAN
- Obtain a head CT scan to evaluate for potential intracranial injury.
- Management of head laceration with suturing.
- Plan for urinary management using a bedpan.
- Regular monitoring for signs of neurological changes post-fall.
DIFFERENTIAL DIAGNOSIS
The Differential Diagnosis includes, in no particular order and is not limited to:
1. Traumatic brain injury
2. Subdural hematoma
3. Basal skull fracture
4. Concussion
Patient's had a fall off of the toilet where she says she likely just fell asleep. She oftentimes has to get had to get up in the middle of the night to go to the bathroom and she is oftentimes very sleepy. Patient says she fell forward and hit
her forehead in the shower. She did not lose consciousness. She laid on the ground for about 20 minutes before someone from her [facility] came and found her. She is at her baseline which is alert and oriented x 4. She is hematoma and a slight
headache to her forehead. She also has a hand laceration x 2 on the left. She otherwise complained that her left leg was a little tingling when she got up but she is no longer feeling that. She denies any neck pain, back pain, chest pain,
shortness of breath, abdominal pain. She is on Plavix but no other anticoagulants. On exam she was ANO x 4, had no neurologic findings, has the hematoma to her forehead but no C-spine or thoracic spine tenderness, her left hand had 2 irregular
large lacerations with hematoma in the center and contusion soft tissue surrounding it with mild discomfort, she can fully range the wrist and hand and fingers.
Patient does not recall her last tetanus. Will updated here. Her head and neck CT are pending, hand x-ray and she will be [facility] the [facility]. Wound care instructions given
<Radha Jason PA-C - Last Filed: 05/01/25 02:29>
*Pulse Oximetry
SaO2: 96
Oxygen Mode of Delivery: Room air
<Evelia Butler PA-C - Last Filed: 04/30/25 10:13>
*Pulse Oximetry
Patient hypoxic: no (95%)
*Critical Care Note
Total Time (30-74mins, 75-104mins- exclusive of procedures): Not Applicable
<Evelia Butler PA-C - Last Filed: 04/30/25 10:13>
Update Note
Update Note:
I assumed care of patient awaiting hand x-ray results. X-rays are negative for fractures. Preliminary [facility]ology report notes an age-indeterminate T3 fracture although our radiologist later interpreted the cervical spine CT without evidence
of fracture. She continues to deny any neck pain. She is stable for discharge back to her nursing facility.
ED Attending Note
<Radha Jason PA-C - Last Filed: 05/01/25 02:29>
-
Portions of this chart may have been created with voice recognition software.� Occasional wrong word or��sound alike� substitutions may have occurred due to the inherent limitations of voice recognition software.
Discharge Plan
Departure
Patient Disposition: Home (Routine Discharge)
Date of Disposition: 04/30/25
Time of Disposition: 08:13
Patient with high blood pressure during this ER visit?: Yes
Discharge Problem:
Hand laceration, Traumatic hematoma of forehead, Fall
Instructions: Head Injury in Adults (DC), Contusion (DC), Laceration Repair With Stitches (DC)
Prescriptions:
No Action
atorvastatin 40 MG tablet
40 mg PO HS
metoprolol tartrate 100 MG tablet
100 mg PO BID
pantoprazole 40 MG tablet,delayed release (DR/EC)
40 mg PO DAILY
docusate sodium 100 MG capsule
100 mg PO DAILYPRN PRN (Reason: constipation)
aspirin 81 MG tablet,chewable
81 mg PO DAILY
clopidogrel 75 MG tablet
75 mg PO DAILY
bumetanide 0.5 MG tablet
0.5 mg PO DAILY
aripiprazole 5 MG tablet
2.5 mg PO HS
duloxetine 60 MG capsule,delayed release(DR/EC)
60 mg PO DAILY
Systane Balance 10 ML drops
1 drp BOTH EYES Q12H PRN (Reason: dry eyes)
acetaminophen 325 MG tablet
650 mg PO Q6HPRN PRN (Reason: MILD PAIN/FEVER>101)
hydroxyzine HCl 25 MG tablet
25 mg PO HS
magnesium hydroxide 30 ML suspension
30 ml PO HSPRN PRN (Reason: NO BM X 2 DAYS)
Lubricant Eye (PG-PEG 400)(PF) 0.4-0.3 % Dropperette
1 drp BOTH EYES BID Qty: 0
gabapentin 100 MG capsule
100 mg PO HS
cholecalciferol (vitamin D3) 125 MCG tablet,disintegrating
125 mcg PO DAILY
nystatin 100,000 unit/gram Powder
1 applic TOPICAL BID
Rx Instructions:
apply to abd folds/under breasts, apply to sacrum
triamcinolone acetonide 1 APPLIC ointment
1 applic topical BID
Fleet Enema 19-7 gram/118 mL Enema
118 ml VA DAILYPRN PRN (Reason: 8HR AFTR MOM IF NO BM)
eyelid cleansers Pad
1 pad TOPICAL DAILY
amlodipine [Norvasc] 10 mg Tablet
10 mg PO DAILY
cyanocobalamin (vitamin B-12) 1,000 mcg/mL Solution
1,000 mcg IM QMONTH
Patient Comments:
monthly on the 3rd
nystatin 100,000 unit/gram Cream
1 applic TOPICAL BID
levothyroxine [Synthroid] 200 mcg Tablet
225 mcg PO DAILY
Remedy Calazime Intensive Skin 0.44-20.6 % Paste
1 applic TOPICAL QPM
coQ10 (ubiquinol) 100 mg Capsule
100 mg PO DAILY
white petrolatum [Hydrophor] 42 % Ointment
1 applic topical DAILY Qty: 0 0RF
doxycycline hyclate 100 mg capsule
100 mg PO BID Qty: 10 0RF
fentanyl 50 MCG patch 72 hour
50 mcg transdermal Q72H Qty: 2 0RF
Referrals:
UNKNOWN - PT DOES,NOT KNOW [Family Provider]
Activity Restrictions/Additional Instructions:
KEEP THE WOUND CLEAN AND DRY FOR 24 HOURS
AFTER THAT YOU CAN GET IT WET IN THE BATH/SHOWER ONCE A DAY AND MAKE SURE IT IS CLEAN AND THERE IS NO DRIED BLOOD ON THE STITCHES
APPLY NEOSPORIN AND A BANDAID
THE STITCHES NEED TO BE REMOVED IN ABOUT 7-10 DAYS, SEE YOUR DOCTOR FOR THIS.
THE LAST DAY BEFORE STITCHES OUT, NO OINTMENT, LEAVE OPEN TO AIR
WATCH FOR SIGNS OF INFECTION AND RETURN NEEDED FOR PAIN, SWELLING, REDNESS, DRAINAGE, BLEEDING. Use an Chris wrap to help with the swelling
YOUR CAT SCANS DID NOT SHOW ANY SIGNS OF TRAUMA
YOU HAVE AN OLD COMPRESSION FRACTURE OF T3 BUT THIS IS NOT FROM THIS FALL
YOUR POTASSIUM WAS A LITTLE LOW, I GAVE YOU A DOSE OF POTASSIUM
RETURN FOR : ANY CONCERNS.
Interventions
Interventions:
*Risk Screen - Suicide Last Done: 04/30/25 05:13
*General Assessment Last Done: 04/30/25 05:13
*Neglect/Abuse Screening Last Done: 04/30/25 05:13
*ED- Fall Risk Assessment Last Done: 04/30/25 05:21
*ED COVID-19 Vaccine History Last Done: 04/30/25 05:21
*Nursing Disposition Last Done: 04/30/25 11:15
ED-Musculoskeletal Assessment Last Done: 04/30/25 05:21
ED- Neurological Assessment Last Done: 04/30/25 05:21
ED-Skin Assessment Last Done: 04/30/25 05:54
Discharge Date and Time
Discharge Date/Time: 04/30/25 11:15
Print Language: ANDORRAN
[2025-04-30 05:37] VITALS: BMI 28.7
[2025-04-30 05:57] LABS: Hematocrit 34.9 % (37.0-47.0); Hemoglobin 11.2 g/dL (12.0-16.0); Mean Corp Hgb Conc. 32.1 g/dL (33.0-37.0); Mean Corpuscular Volume 85.3 fL (81.0-99.0); Nucleated Red Blood Cells % 0 %; Platelet Count 235 10^3/uL (130-400); Red Cell Dist. Width 14.1 % (11.5-14.5)
[2025-04-30 06:20] LABS: ALT (SGPT) 14 U/L (0-35); AST (SGOT) 21 U/L (14-36); Albumin 3.7 g/dl (3.5-5.0); Alkaline Phosphatase 190 U/L (38-126); Blood Urea Nitrogen 21 mg/dl (7-17); Calcium 9.7 mg/dl (8.4-10.2); Carbon Dioxide 30 mmol/L (22-30); Chloride 108 mmol/L (98-107); Estimated Creatinine Clearance 51 ml/min; Glucose 122 mg/dl (70-99); Potassium 3.3 mmol/L (3.5-5.1); Sodium 143 mmol/L (135-145); Total Protein 7.3 g/dl (6.3-8.2); eGFR > 60.00
[2025-04-30 06:35] VITALS: BP 157/78
[2025-04-30] MEDS: KLOR-CON 20 MEQ PO (06:48)
[2025-04-30] MEDS: ADACEL 0.5 ML IM (07:44)
[2025-04-30 11:15] VITALS: BP 141/79
--- NOTE | 2025-04-30 11:23 | CM ---
Received a call from [facility] inquiring about pt. Discharge instructions faxed to [phone]. Number for report os [phone].
== END 2025-04-30 11:15 | disposition home or self-care (01) ==
LOC: EMR 05:03
PROVIDERS: Physician Assistant; EMERGENCY PHYSICIAN Emergency Medicine
DX: S61.412A Laceration without foreign body of left hand, initial encounter (principal); S00.83XA Contusion of other part of head, initial encounter; E87.6 Hypokalemia; I25.10 Atherosclerotic heart disease of native coronary artery without angina pectoris; I10 Essential (primary) hypertension; E78.00 Pure hypercholesterolemia, unspecified; E03.9 Hypothyroidism, unspecified; K21.9 Gastro-esophageal reflux disease without esophagitis; Z23 Encounter for immunization; W18.12XA Fall from or off toilet with subsequent striking against object, initial encounter; Y92.121 Bathroom in nursing home as the place of occurrence of the external cause
CPT/HCPCS: 99284; 12004; 90471; 70450; 72125; 73130; 80053; 85025; 90715; 93005

== ENCOUNTER → 2025-05-07 09:04 | Outpatient (REF) | payer MEDICARE, SELFPAY ==
[2025-05-07 10:59] LABS: TSH 0.26 uIU/ml (0.47-4.68)
== END ==
LOC: OLABWPC 09:04
PROVIDERS: ATTENDING PHYSICIAN Internal Medicine
DX: E03.9 Hypothyroidism, unspecified (principal)
CPT/HCPCS: 36415; 84443

== ENCOUNTER → 2025-07-13 11:54 | Outpatient (REF) | payer MEDICARE, SELFPAY ==
[2025-07-13 12:59] LABS: Vitamin D, 25-OH*** 55.7 ng/mL (30-80)
== END ==
LOC: OLABWPC 11:54
PROVIDERS: ATTENDING PHYSICIAN Internal Medicine
DX: I10 Essential (primary) hypertension (principal); E55.9 Vitamin D deficiency, unspecified
CPT/HCPCS: 36415; 82306

== ENCOUNTER → 2025-08-07 11:03 | Outpatient (REF) | payer MEDICARE, SELFPAY ==
[2025-08-07 12:08] LABS: Hematocrit 40.7 % (37.0-47.0); Hemoglobin 12.4 g/dL (12.0-16.0); Mean Corp Hgb Conc. 30.5 g/dL (33.0-37.0); Mean Corpuscular Volume 91.1 fL (81.0-99.0); Nucleated Red Blood Cells % 0 %; Platelet Count 246 10^3/uL (130-400); Red Cell Dist. Width 14.6 % (11.5-14.5)
[2025-08-07 12:18] LABS: ALT (SGPT) 16 U/L (0-35); AST (SGOT) 22 U/L (14-36); Albumin 4.0 g/dl (3.5-5.0); Alkaline Phosphatase 152 U/L (38-126); Blood Urea Nitrogen 31 mg/dl (7-17); Calcium 10.5 mg/dl (8.4-10.2); Carbon Dioxide 31 mmol/L (22-30); Chloride 103 mmol/L (98-107); Glucose 97 mg/dl (70-99); HDL Cholesterol 61 mg/dl; LDL Cholesterol, Calculated 50 mg/dl; Potassium 4.4 mmol/L (3.5-5.1); Sodium 140 mmol/L (135-145); Total Protein 7.5 g/dl (6.3-8.2); Very Low Density Lipoprotein 15 mg/dl (0-30); eGFR 32.81
[2025-08-07 13:30] LABS: TSH 12.80 uIU/ml (0.47-4.68)
== END ==
LOC: OLABWPC 11:03
PROVIDERS: ATTENDING PHYSICIAN Internal Medicine
DX: E03.9 Hypothyroidism, unspecified (principal); E78.5 Hyperlipidemia, unspecified; E78.00 Pure hypercholesterolemia, unspecified; R60.0 Localized edema
CPT/HCPCS: 36415; 80053; 80061; 84443; 85025; 85652

== ENCOUNTER → 2025-08-18 10:39 | Outpatient (REF) | payer MEDICARE, SELFPAY ==
[2025-08-18 12:28] LABS: Blood Urea Nitrogen 22 mg/dl (7-17); Calcium 10.0 mg/dl (8.4-10.2); Carbon Dioxide 31 mmol/L (22-30); Chloride 106 mmol/L (98-107); Glucose 93 mg/dl (70-99); Potassium 4.8 mmol/L (3.5-5.1); Sodium 137 mmol/L (135-145); eGFR 51.43
== END ==
LOC: OLABWPC 10:39
PROVIDERS: ATTENDING PHYSICIAN Internal Medicine
DX: N18.32 Chronic kidney disease, stage 3b (principal); I10 Essential (primary) hypertension
CPT/HCPCS: 36415; 80048